=== PATIENT | female | born 1995 | race Caucasian/White ===

== ENCOUNTER 2021-11-14 04:22 | Emergency (ER) | payer OTHER ==
[~2021-11-14] VITALS: Ht 157.5 cm; Wt 88.3 kg
[2021-11-14] MEDS ORDERED: ONDANSETRON 4MG ODT PO STA (05:31)
[2021-11-14] MEDS ORDERED: ACETAMINOPHEN 325MG TABLET PO ONE (05:45)
[2021-11-14 05:49] LABS: BASOPHILS % 0.8 % (0.0-2.0); EOSINOPHILS % 0.6 % (0.0-5.0); HEMATOCRIT. 42.9 % (36.0-48.0); HEMOGLOBIN. 14.4 g/dL (12.0-16.0); LYMPHOCYTES % 28.8 % (20.0-50.0); MEAN CORPUSCULAR HEMOGLOBIN 30.6 pg (28.0-32.0); MEAN PLATELET VOLUME 6.9 fl (7.4-10.4); MONOCYTES % 4.5 % (2.0-8.0); NEUTROPHILS % 65.3 % (40.0-76.0); PLATELET 372 x1000/uL (130-400); RED BLOOD CELL COUNT 4.72 mill/uL (4.2-5.4); RED CELL DISTRIBUTION WIDTH 14.6 % (11.6-14.6)
[2021-11-14 05:55] LABS: CHLORIDE 111 mEq/L (98-107)
[2021-11-14 06:03] LABS: ETHANOL BLOOD 219 mg/dL
[2021-11-14 06:04] LABS: HCG SCREEN NEGATIVE
[2021-11-14 08:17] VITALS: BP 108/73
[2021-11-14] MEDS ORDERED: ONDA4TAB5 MT (08:31)
[2021-11-14] MEDS ORDERED: ACET-2708 MT (08:31)
== END 2021-11-14 09:45 | disposition home or self-care (01) ==
LOC: ER 04:22
DX: T51.0X1A Toxic effect of ethanol, accidental (unintentional), initial encounter (principal); R51.9 Headache, unspecified; F12.10 Cannabis abuse, uncomplicated; Y90.7 Blood alcohol level of 200-239 mg/100 ml; Y92.018 Other place in single-family (private) house as the place of occurrence of the external cause
CPT/HCPCS: 36415; 70450; 80053; 80320; 84703; 85025; 99284; Q0162; G0480